=== PATIENT | female | born 1980 | race Caucasian/White ===

== ENCOUNTER 2021-02-28 09:47 | Emergency (ER) | payer OTHER ==
[~2021-02-28 09:47] MED LIST: CALCIUM600 MG PO; NORCO 5-325 TA1 EACH PO; VITAMIN B-121000 MC1 PO; VITAMIN D-32000 UNIT PO
[2021-02-28 12:52] LABS: PRO-BNP 11 pg/mL (<125)
[2021-02-28 12:54] LABS: ALBUMIN 4.2 g/dL (3.4-5.0); BILIRUBIN - TOTAL 1.7 mg/dL (0.2-1.0); BUN/CREAT RATIO (CALC) 17.8 RATIO; CREATININE 0.73 mg/dL (0.51-0.95); GLOBULIN (CALCULATION) 3.6 g/dL; MAGNESIUM 2.1 mg/dL (1.8-2.4); POTASSIUM 4.2 mmol/L (3.5-5.1); TOTAL PROTEIN 7.8 g/dL (6.4-8.2)
[2021-02-28] MEDS ORDERED: ATARAX25 MG PO (13:38)
== END 2021-02-28 13:59 | disposition home or self-care (01) ==
LOC: FER 09:47
PROVIDERS: Emergency Medicine
DX: I10 Essential (primary) hypertension (principal); F17.200 Nicotine dependence, unspecified, uncomplicated; Z88.0 Allergy status to penicillin
CPT/HCPCS: 36415; 70450; 71045; 80053; 82550; 83615; 83735; 83880; 84443; 84484; 93005

== ENCOUNTER 2022-06-20 17:26 | Emergency (ER) | payer OTHER ==
[~2022-06-20 17:26] MED LIST changes: +ATARAX25 MG PO
[2022-06-20 18:27] LABS: INFLUENZA A NAA NEGATIVE (NEGATIVE)
[2022-06-20 18:30] LABS: CORONAVIRUS 2019 SARS-COV-2 POSITIVE (NEGATIVE)
[2022-06-20] MEDS ORDERED: MEDROL 4MG DOSEP4 MG PO (19:12)
[2022-06-20] MEDS ORDERED: VENTOLIN HFA IN18 GM INH (19:12)
[2022-06-20] MEDS ORDERED: PAXLOVID 150-11 EACH PO (19:12)
== END 2022-06-20 19:18 | disposition home or self-care (01) ==
LOC: FER 17:26
PROVIDERS: Nurse Practitioner Family
DX: U07.1 COVID-19 (principal); J45.909 Unspecified asthma, uncomplicated; Z88.0 Allergy status to penicillin; Z91.040 Latex allergy status
CPT/HCPCS: 99284; U0002